=== PATIENT | female | born 1945 | race Caucasian/White ===

== ENCOUNTER 2016-08-27 22:13 | Inpatient (IN) | payer OTHER ==
--- NOTE | ~2016-08-27 | CT2 ---
[facility] A Service of [facility] & [facility] RADIOLOGY TEXT RESULTS PATIENT: NA RATLIFF LOCATION: [facility] [id number] : 45 UNIT #: [id number] AGE: [address]: Fabiano Liang SEX: F ORDER DR: [id number] [facility] [address] [facility]. [place], [place] [address] [id number] MR#: [id number] Acc #: [id number] NAME: NA RATLIFF : 1945 SEX: F STUDY DATE/TIME: 08/27/2016 23:35 UNIT: CEDOF ROOM: 27563 STUDY DESCRIPTION: CT Abd and Pelv W Cont Attending Physician: Fabiano Liang M.D. Ordering Physician: Karlee Cantu M.D. Primary Care Physician: Jacinto Mills M.D. MEDICAL IMAGING REPORT This report is preliminary unless electronic signature is present EXAM CT abdomen and pelvis with contrast INDICATIONS Abdominal pain, diarrhea, chills, night sweats, history of diverticulitis and symptoms have been going on for 4 weeks. TECHNIQUE Patient was given 100 mL of Isovue-370 and axial 5-mm images were obtained through the abdomen and pelvis. This CT exam was performed with one or more of the following radiation dose reduction techniques: Automatic exposure control, adjustment of mA and/or kV according to patient size, and iterative reconstruction. FINDINGS There is minimal left base infiltrate or atelectasis. The liver, gallbladder, spleen, pancreas, adrenal glands and kidneys are normal except for peripelvic cysts. There is no hydronephrosis. There is marked inflammatory change associated with a short segment of the left colon and there is wall thickening in this region. There are a few diverticula. There is an ill-defined, low-density area posterior to the left colon measuring 3.5 cm in diameter. This could be a developing abscess. The bladder is normal. The uterus has been removed and there are no adnexal masses. The segment of colon that is involved with the inflammation is about 8 cm in length. IMPRESSION 1. Patient has an 8-cm segment of the left colon that shows marked wall thickening and inflammation and posterior to that in the retroperitoneum, there is approximately a 3 cm to 3.5-cm low-density area that is probably an early abscess formation. Findings are likely due to diverticulitis or colitis. Suggest followup imaging [facility] A Service of [facility] & [facility] RADIOLOGY TEXT RESULTS PATIENT: NA RATLIFF LOCATION: [facility] : [birth year] UNIT #: [id number] AGE: [address]: Fabiano Liang SEX: F ORDER DR: after appropriate treatment to ensure resolution of the soft tissue in this region, to make sure a mass is not present. The presumed inflammatory change is inseparable from the psoas muscle. 2. Minimal left base atelectasis or infiltrate. Dictated by... Wesly Leal M.D. THIS IS AN ELECTRONICALLY VERIFIED REPORT Wesly Leal M.D. at 08/28/2016 2:16 PM FEL/psc TD: 08/28/2016 00:44 JOB #: [id number] MEDICAL IMAGING REPORT Page 1 of 1 COPY
--- NOTE | ~2016-08-27 | HP ---
Unit #: [id number] #: [id number] Patient: NA RATLIFF [id number] [facility] [address] [facility]. [place], [place] [address] [id number] MR#: [id number] NAME: NA RATLIFF ROOM: 467 Age: 70 Sex: F Admission Date: 08/28/2016 : 1945 Attending Physician: Fabiano Liang M.D. Primary Care Physician: Jacinto Mills M.D. HISTORY AND PHYSICAL REVISED REPORT HISTORY OF PRESENT ILLNESS Ms. Ratliff is a pleasant 70-year-old female who states that she has had a long history of diverticular disease and had her last colonoscopy in 2014. At that time she was noted to have diverticular disease, but denies any prior history of polyps. Over the last several weeks she has been having some left lower quadrant discomfort and saw her primary care physician, who started her on appropriate outpatient oral antibiotics. Despite oral antibiotics she has had progression of her pain and now is complaining of increased pain in the left lower quadrant as well as in the back. She has been having loose stools, but denies any gross blood per rectum. She has not had any significant fever, but was complaining of chills. She came to the emergency room here at [facility] and a CT scan was consistent with acute diverticulitis in the sigmoid colon with a 3.5 cm abscess in the retroperitoneum. PAST MEDICAL HISTORY 1. She is 1, para 1, vaginal delivery. 2. Laparoscopic assisted total abdominal hysterectomy. 3. Repair of a hallex rigidus. 4. She denies any other medical issues. 5. She has had tonsillectomy. 6. Colonoscopy. IMMUNIZATIONS She has had a flu vaccine. SOCIAL HISTORY . One child that is grown. She is retired. Denies the use of alcohol or tobacco. FAMILY HISTORY Colon cancer in two siblings, pancreatic cancer, diabetes, lung cancer. ALLERGIES Benadryl, sulfa, metronidazole and atorvastatin. CURRENT MEDICATIONS 1. Bentyl. 2. Calcium. 3. Magnesium. 4. Zinc. 5. Vitamin B12. Unit #: [id number] #: [id number] Patient: NA RATLIFF REVIEW OF SYSTEMS No hematemesis, hematochezia. She said several weeks ago she had some black stools, but that cleared up after one day. No prior history of peptic ulcer disease. She denies fever, but has had some chills at home. She has had loose stools, but again no blood per rectum. PHYSICAL EXAMINATION GENERAL: She is awake, alert and oriented, very pleasant, does not appear to be in acute distress, but does complain of pain in the left lower quadrant and flank. VITALS: In the emergency room, temperature 100.1, pulse 91 and regular, respiratory rate 18, blood pressure 107/87, 99% O2 saturations on room air. HEENT: No scleral icterus. LUNGS: Clear. HEART: Regular rhythm without murmur. ABDOMEN: Slightly distended, but soft. She guards in the left lower quadrant and suprapubic area and does have left-sided CVA tenderness. There is no mass and no diffuse peritonitis. She guards, but does not have rigidity. EXTREMITIES: No edema. NEUROLOGIC: Grossly intact. No skin rashes or lesions. DIAGNOSTIC STUDIES IMAGING: CT scan as discussed. LABORATORY: CMP, amylase and lipase are all within normal limits. Hemoglobin is 11.4, white blood cell count 9,500, differential is pending. Urinalysis 5-10 white cells, otherwise negative. Platelets 336,000. ASSESSMENT Patient with acute diverticulitis with an early and developing retroperitoneal abscess. The abscess is only 3.5 cm. PLAN At this time we will admit the patient to the hospital. Hydrate her and start her on IV antibiotics. Do a repeat CT scan in 24-48 hours to see if the developing phlegmon/abscess is resolving with conservative management. If the abscess enlarges, percutaneous drainage may be appropriate. I discussed with the patient should she clinically worsen and not respond to percutaneous drainage and antibiotics, she may need surgical intervention which may include resection with colostomy formation. However, I think we can probably manage this nonoperatively until the acute process is resolved and then discuss with her options electively. REPORT TYPE REVISED Dictated by Remy Porter M.D. Mary TD: 08/28/2016 11:13 JOB #: [id number] Unit #: [id number] #: [id number] Patient: NA RATLIFF HISTORY AND PHYSICAL Page 1 of 1 X Remy Porter MD HISTORY AND PHYSICAL
--- NOTE | ~2016-08-27 | A ---
[facility] Nutrition Therapy DATE: 08/29/16 Patient: NA RATLIFF Physician: THECHR Address: [address] [place] [address] Room/Bed: [address] [place] [address], Zip: [place] [address] Admit Date: 08/28/16 Date of : [birth year] Height: 7 1 Weight: 138 62.59 NUTRITIONAL ASSESSMENT: REASON: Consult RE: low-fiber diet education 70 yo female admitted for diverticulitis Anthropometrics: Ht: 5'6" Wt: 62.3 kg (137#) BMI: 22.2 Assessment: RD ad operations intern provided written and verbal low-fiber diet education 2' diverticulitis. Pt and pt's sister expressed interested in subject and asked questions, which RD ad operations intern responded to appropriately. Pt reported good appetite, before and during admission. Pt reported some nausea d/t medications. Pt reported ~3# wt loss in [address] ad operations intern discussed foods recommended and foods not recommended. Pt verbalized understanding. Pt reported living alone and found handouts very useful, expect full compliance with diet when d/c'd. RD ad operations intern to remain available. Recommendations: 1. Once medically feasible, advance diet to low-fiber. 2. Encourage compliance with low-fiber diet. 3. Reconsult RD if further diet education is needed/requested. RD will f/u per protocol. Respectfully, Sisi Gautam, Utility Plant Operative Nahum Contreras MS, RD, LD [facility] cc: client file
--- NOTE | ~2016-08-27 | DS ---
Unit #: [id number] #: [id number] Patient: NA RATLIFF [id number] [address] [place], [place] [address] [id number] I MR#: [id number] NAME: NA RATLIFF ROOM: 46 Age: 70 Sex: F Admission Date: 08/28/2016 : 1945 Discharge Date: 08/31/2016 Attending Physician: Fabiano Liang M.D. Primary Care Physician: Jacinto Mills M.D. DISCHARGE SUMMARY DISCHARGE DIAGNOSIS Uncomplicated acute sigmoid diverticulitis with history of diverticular disease. OPERATIVE PROCEDURES None. DISCHARGE MEDICATIONS Home medications plus Augmentin 875 mg 1 p.o. b.i.d. HISTORY OF PRESENT ILLNESS AND HOSPITAL COURSE A 70-year-old white female with left lower quadrant abdominal pain and CT scan showing diverticulitis with a 3 cm abscess which was not amenable to drainage. She was treated with intravenous Zosyn. She was also given a dose of Flagyl; however, she was allergic to it, so it was stopped. She has continued the IV antibiotics for three days. She has become asymptomatic over the last 48 hours with no tenderness, white blood cell count being normal, and tolerating a low-residue diet. Presently, at this time, she is ready to be discharged on oral antibiotics. She will be seen in the office in two to three weeks per Dr. Porter. She may or may not need colonoscopy. Her last colonoscopy was about a year and a half ago. We will see the patient at that time. She is to call if she is having any problems. Dictated by... Herman Gonzales/eugene TD: 08/31/2016 21:37 JOB #: [id number] DISCHARGE SUMMARY Page 1 of 1 X Jefferson Voss MD X DISCHARGE SUMMARY
[2016-08-27 21:16] LABS: BASOPHIL% 0.4 % (0-2.5); EOSINOPHIL# 0.2 X10e3 (0-0.7); HEMATOCRIT 34.7 % (35.0-45.0); HEMOGLOBIN 11.4 gm/dL (12.0-16.0); LYMPHOCYTE# 1.2 X10e3 (1.0-3.5); LYMPHOCYTE% 12.6 % (17.0-45.0); MEAN CORPUSCULAR HEMOGLOBIN 27.6 PG (28-34); MEAN CORPUSCULAR HGB CONC 32.9 g/dL (30-36); MEAN PLATELET VOLUME 7.3 FL (6.5-11.5); MONOCYTE# 0.8 X10e3 (0-1.0); MONOCYTE% 8.1 % (3.0-12.0); NEUTROPHIL# 7.3 X10e3 (1.5-7.1); NEUTROPHIL% 76.9 % (40-75); PLATELET COUNT 336 X10e3 (140-420); RED BLOOD COUNT 4.13 X10e (3.90-5.30); RED CELL DISTRIBUTION WIDTH 14.8 % (11.0-15.5); WHITE BLOOD COUNT 9.5 X10e3 (4.0-10.5)
[2016-08-27 21:19] LABS: DIFF IND NO
[2016-08-27 21:40] LABS: ALBUMIN SERUM 3.1 g/dL (3.5-5.0); BILIRUBIN,TOTAL 0.3 mg/dL (0.2-2.0); BUN/CREATININE RATIO 25.71; CALCIUM SERUM 8.7 mg/dL (8.4-10.2); CREATININE SERUM 0.7 mg/dL (0.6-1.4); GLOM FILT RATE Estimated 87.8 mL/min (>60); PROTEIN TOTAL SERUM 7.4 g/dL (6.0-8.3)
[2016-08-27 21:41] LABS: BILIRUBIN, DIRECT 0.1 mg/dL (0.0-0.2); BILIRUBIN,INDIRECT 0.2 mg/dL (0.0-0.9)
[2016-08-27 21:58] LABS: URINE SOURCE CLEAN CATCH
[~2016-08-27 22:13] MED LIST: ANTIVERT PO; CALCIUM MAGNESI1 TAB PO; CRESTOR10 MG PO; DIAZEPAM PO; FISH OIL500 M1 PO; KEFLEX500 MG; PERCOCET; VITAMIN D31000 UNIT PO; WOMEN'S 50+ DA1 EACH PO
[2016-08-27 22:19] LABS: URINE APPEARANCE CLEAR; URINE BILIRUBIN NEG (NEG); URINE BLOOD NEG (NEG); URINE COLOR YELLOW; URINE GLUCOSE NEG (NEG); URINE KETONE TRACE (NEG); URINE LEUKOCYTE ESTERASE 2+ (NEG); URINE NITRATE NEG (NEG); URINE PROTEIN NEG (NEG); URINE SPECIFIC GRAVITY 1.022 (1.003-1.035)
[2016-08-27 22:23] LABS: CULTURE INDICATED? YES; URINE BACTERIA AUWI NEG (NEGATIVE); URINE SQUAMOUS EPITHELIAL CELL FEW /[HPF]
[2016-08-28] MEDS ORDERED: BENTYL10 MG PO (03:42)
[2016-08-28] MEDS ORDERED: CALCIUM-MAGNES1 EAC2 PO (03:43)
[2016-08-28] MEDS ORDERED: VITAMIN B122500 MCG PO (03:47)
[2016-08-28] MEDS ORDERED: ASPIRIN81 M2 PO (11:33)
[2016-08-28] MEDS ORDERED: CALCIUM-MAGNES1 EAC4 (11:35)
[2016-08-28] MEDS ORDERED: VITAMIN D1000 UNI1 PO (11:36)
[2016-08-28] MEDS ORDERED: BENTYL10 M1 PO (11:36)
[2016-08-28] MEDS ORDERED: CLARITIN10 M3 PO (11:41)
[2016-08-28] MEDS ORDERED: FENOFIBRATE160 MG PO (11:41)
[2016-08-28] MEDS ORDERED: MIRALAX17 GM PO (11:42)
[2016-08-28] MEDS ORDERED: ACIDOPHILUS1 EAC1 PO (11:43)
[2016-08-29 04:06] LABS: HEMATOCRIT 30.3 % (35.0-45.0); HEMOGLOBIN 10.1 gm/dL (12.0-16.0); MEAN CELL VOLUME 83.8 FL (83-96); MEAN CORPUSCULAR HEMOGLOBIN 27.9 PG (28-34); MEAN CORPUSCULAR HGB CONC 33.3 g/dL (30-36); MEAN PLATELET VOLUME 7.7 FL (6.5-11.5); RED BLOOD COUNT 3.62 X10e (3.90-5.30); RED CELL DISTRIBUTION WIDTH 14.8 % (11.0-15.5); WHITE BLOOD COUNT 8.3 X10e3 (4.0-10.5)
[2016-08-29 04:14] LABS: BUN/CREATININE RATIO 7.14; CALCIUM SERUM 8.6 mg/dL (8.4-10.2); CREATININE SERUM 0.7 mg/dL (0.6-1.4); GLOM FILT RATE Estimated 87.8 mL/min (>60); MAGNESIUM 2.3 mg/dL (1.6-3.0); PHOSPHOROUS 3.3 mg/dL (2.5-4.6); POTASSIUM 4.2 mmol/L (3.5-5.1)
[2016-08-30 03:44] LABS: HEMATOCRIT 31.3 % (35.0-45.0); HEMOGLOBIN 10.2 gm/dL (12.0-16.0); MEAN CELL VOLUME 84.3 FL (83-96); MEAN CORPUSCULAR HEMOGLOBIN 27.5 PG (28-34); MEAN CORPUSCULAR HGB CONC 32.7 g/dL (30-36); MEAN PLATELET VOLUME 7.6 FL (6.5-11.5); RED BLOOD COUNT 3.72 X10e (3.90-5.30); RED CELL DISTRIBUTION WIDTH 14.5 % (11.0-15.5); WHITE BLOOD COUNT 7.9 X10e3 (4.0-10.5)
[2016-08-31] MEDS ORDERED: AUGMENTIN PO (08:31)
== END 2016-08-31 09:10 | disposition home or self-care (01) | DRG 391 ==
LOC: CED 22:13 → CEDOF 08-28 00:26 → C4C 08-28 08:45
PROVIDERS: Obstetrics & Gynecology; Surgery
DX: K57.32 Diverticulitis of large intestine without perforation or abscess without bleeding (principal); K68.19 Other retroperitoneal abscess; Z83.3 Family history of diabetes mellitus; Z80.0 Family history of malignant neoplasm of digestive organs; Z80.1 Family history of malignant neoplasm of trachea, bronchus and lung; Z88.2 Allergy status to sulfonamides; Z88.1 Allergy status to other antibiotic agents; Z88.8 Allergy status to other drugs, medicaments and biological substances; Z79.899 Other long term (current) drug therapy
CPT/HCPCS: 36415; 74177; 80048; 80076; 81003; 82150; 83690; 83735; 84100; 85025; 85027; 87086; 96361; 96374; 96375; 99285; C9113; J2270; J2405; J2543; Q9967